=== PATIENT | male | born 1990 | race Caucasian/White ===

== ENCOUNTER 2018-07-08 13:20 | Emergency (ER) | payer SELFPAY | END 2018-07-08 15:29 | disposition home or self-care (01) | LOC: FTE 13:20 | DX: S09.90XA Unspecified injury of head, initial encounter (principal); R51 Headache; W11.XXXA Fall on and from ladder, initial encounter; Y92.89 Other specified places as the place of occurrence of the external cause | CPT/HCPCS: 70450; 99284-25 ==

== ENCOUNTER 2018-12-08 01:28 | Emergency (ER) | payer SELFPAY | END 2018-12-08 03:30 | disposition home or self-care (01) | LOC: E/R 01:28 | DX: R13.10 Dysphagia, unspecified (principal) | CPT/HCPCS: 70360; 71045; 99284-25 ==